=== PATIENT | male | born 1960 | race Caucasian/White ===

== ENCOUNTER → 2016-12-29 | Outpatient (CLI) | payer OTHER ==
[~2016-12-29] MED LIST: ADVAIR 250-501 EACH INH; ALBUTEROL MININEB NEB; ALBUTEROL17 GM INH; ALL DAY ALLERGY10 M3 PO; ATORVASTATIN CA20 MG PO; CHANTIX1 MG PO; COLESTID PO; DICYCLOMINE HCL10 MG PO; DOXEPIN HCL25 MG PO; FENOFIBRATE160 MG PO; FLEXERIL10 MG PO; FLOVENT DISKUS50 MCG INH; LYRICA200 MG PO; METFORMIN HCL1000 M1 PO; PANTOPRAZOLE SO40 MG PO; [UNRECOGNIZED DRUG - OTHER] PO; [UNRECOGNIZED DRUG - OTHER] PO
--- NOTE | ~2016-12-29 | EKG ---
PATIENT: ELY BECKMAN UNIT #: [id number] Ventricular Rate: 70 BPM Atrial Rate: 70 BPM P-R Interval: 194 ms QRS Duration: 112 ms Q-T Interval: 388 ms QTC Calculation(Bezet): 419 ms P Reese: 55 degrees Calculated R Reese: -29 degrees Calculated T Reese: 35 degrees Diagnosis Line: Normal sinus rhythm Diagnosis Line: Septal infarct , age undetermined Diagnosis Line: Abnormal ECG Diagnosis Line: No previous ECGs available Diagnosis Line: Confirmed by POLLY HANLEY MD ([id number]) on Diagnosis Line: 12/29/2016 7:38:19 PM INTERPRETING MD: DAYAN MARTIN
[2016-12-29 16:36] LABS: BUN/CREATININE RATIO 17.5; CALCIUM SERUM 9.4 mg/dL (8.4-10.2); CREATININE SERUM 0.8 mg/dL (0.6-1.4); GLOM FILT RATE Estimated 100.6 mL/min (>60); POTASSIUM 3.9 mmol/L (3.5-5.1)
== END | disposition home or self-care (01) ==
LOC: CAMB 13:35
PROVIDERS: Surgery
DX: Z01.818 Encounter for other preprocedural examination (principal)
CPT/HCPCS: 36415; 80048; 93005

== ENCOUNTER → 2017-01-09 | Day surgery (SDC) | payer OTHER ==
--- NOTE | ~2017-01-09 | OR ---
Unit #: [id number] #: [id number] Patient: ELY BECKMAN [id number] [address] [address] [id number] O MR#: [id number] NAME: ELY BECKMAN. ROOM: Date of Procedure: 01/09/2017 Admission Date: 01/09/2017 Surgeon: Raji Parsons M.D. : 1960 Attending Physician: Raji Parsons M.D. OPERATIVE REPORT PREOPERATIVE DIAGNOSES 1. Chronic gastroesophageal reflux disease. 2. Hiatal hernia. PROCEDURE PERFORMED Laparoscopic Prieto fundoplication. ASSISTANT Omer Field M.D. ANESTHESIA General endotracheal anesthesia. ESTIMATED BLOOD LOSS Minimal. IV FLUIDS 800 crystalloid. COMPLICATIONS None. INDICATIONS FOR PROCEDURE The patient is a 56-year-old with chronic gastroesophageal reflux disease and hiatal hernia. DESCRIPTION OF PROCEDURE The patient was taken to the operating theater and placed in a supine position. General anesthesia was induced. The abdomen was prepped and draped. A 10-mm Visiport placed left of the midline without difficulty. The abdomen was insufflated to 15 mmHg with CO2. I then placed a right lower quadrant 5 mm, left upper quadrant 5 mm, and left lower quadrant 5 mm. Amira liver retractor was placed in the subxiphoid position. I then placed the patient in reverse Trendelenburg. The liver was retracted upward to identify a hiatal hernia. I took down the hepatogastric ligament as well as the phrenicoesophageal ligament to expose the esophagus. I identified the anterior vagus and posterior vagus. I dissected the left and right crura, thus opening the hernia sac. I then gained circumferential control. I took down the short gastrics from the mid fundus proximal using the Harmonic Scalpel. I then repaired the hiatal hernia posteriorly with 2 interrupted 0 Ethibond sutures. This created a snug repair that allowed easily 2 instruments to pass anterior Unit #: [id number] #: [id number] Patient: ELY BECKMAN without difficulty. I then created a 3 cm wrap of fundus anteriorly. I secured this with 3 sutures with central suture gathering that the anterior portion of the esophagus with care taken to avoid the vagus nerve. This created a 3 cm wrap. Hemostasis was adequate. I saw no other abnormalities. The ports were removed and the wound was closed with 4-0 Vicryl. The patient tolerated the procedure well and sent to recovery room in good condition. Dictated by... Johanna Bartlett/angelica TD: 01/09/2017 14:20 JOB #: [id number] OPERATIVE REPORT Page 1 of 1 X Raji Parsons MD X PROCEDURE OPERATIVE NOTE
== END | disposition home or self-care (01) ==
LOC: CSUR 05:54
DX: K21.9 Gastro-esophageal reflux disease without esophagitis (principal); K44.9 Diaphragmatic hernia without obstruction or gangrene; J44.9 Chronic obstructive pulmonary disease, unspecified; I10 Essential (primary) hypertension; E11.9 Type 2 diabetes mellitus without complications; G47.30 Sleep apnea, unspecified; I25.2 Old myocardial infarction; F17.210 Nicotine dependence, cigarettes, uncomplicated; M19.90 Unspecified osteoarthritis, unspecified site; J45.909 Unspecified asthma, uncomplicated; E78.5 Hyperlipidemia, unspecified; Z87.19 Personal history of other diseases of the digestive system; Z86.73 Personal history of transient ischemic attack (TIA), and cerebral infarction without residual deficits; Z79.84 Long term (current) use of oral hypoglycemic drugs; Z79.51 Long term (current) use of inhaled steroids; Z79.899 Other long term (current) drug therapy; Z98.890 Other specified postprocedural states
CPT/HCPCS: 82947; J0131; J0330; J0690; J1885; J2250; J2310; J2405; J2710; J2765; J3010